=== PATIENT | male | born 1980 | race Caucasian/White ===

== ENCOUNTER 2020-07-05 10:17 | Inpatient (IN) | payer BC ==
[~2020-07-05] VITALS: Ht 182.9 cm; Wt 93.0 kg
[2020-07-05 10:34] VITALS: Ht 182.9 cm; Wt 93.0 kg
[2020-07-05 10:48] LABS: PLATELET COUNT 160 x10^3mcL (152-348); RED CELL DISTRIBUTION WIDTH 13.9 % (12.1-16.2)
[2020-07-05 11:01] LABS: CALCIUM 9.4 mg/dL (8.5-10.1); CARBON DIOXIDE 18.8 mmol/L (21-32); CHLORIDE SERUM 99 mmol/L (98-107); CREATININE SERUM 1.2 mg/dL (0.7-1.3); GFR1 > 60 mL/min; GLUCOSE SERUM 210 mg/dL (74-106); SODIUM SERUM 139 mmol/L (136-145)
[2020-07-05 11:12] LABS: ALBUMIN 4.2 g/dL (3.4-5.0); ALKALINE PHOSPHATASE 126 U/L (46-116); ALT/SGPT 102 U/L (16-63); AST/SGOT 166 U/L (15-37); BILIRUBIN TOTAL 1.45 mg/dL (0.20-1.00)
[2020-07-05 13:28] LABS: AMPHETAMINE QUAL UR NONE DETECTED (See below)
[2020-07-05 18:52] VITALS: BP 155/106
[2020-07-05 22:01] VITALS: BP 151/103
[2020-07-06 06:02] VITALS: BP 148/102
[2020-07-06 07:55] LABS: BASOPHIL % 0.7 % (0.2-1.5); PLATELET COUNT 131 x10^3mcL (152-348); RED CELL DISTRIBUTION WIDTH 14.3 % (12.1-16.2)
[2020-07-06 08:29] LABS: CALCIUM 8.3 mg/dL (8.5-10.1); CARBON DIOXIDE 25.4 mmol/L (21-32); CHLORIDE SERUM 103 mmol/L (98-107); CREATININE SERUM 0.7 mg/dL (0.7-1.3); GFR1 > 60 mL/min; GLUCOSE SERUM 69 mg/dL (74-106); PHOSPHOROUS 3.1 mg/dL (2.5-4.9); SODIUM SERUM 140 mmol/L (136-145)
[2020-07-06 10:17] LABS: POTASSIUM SERUM 2.9 mmol/L (3.5-5.1)
== END 2020-07-06 08:33 | disposition left against medical advice (07) | DRG 641 ==
LOC: ED 10:17 → DU 12:28
PROVIDERS: Emergency Medicine; ADMIT Internal Medicine; ATTEND Internal Medicine
DX: E87.6 Hypokalemia (principal); F10.239 Alcohol dependence with withdrawal, unspecified; Z20.822 Contact with and (suspected) exposure to COVID-19; I10 Essential (primary) hypertension; Y90.9 Presence of alcohol in blood, level not specified
CPT/HCPCS: G0378; G0480; J2060; J3480; J7030; J7042